=== PATIENT | female | born 1965 | race Caucasian/White ===

== ENCOUNTER 2020-03-14 19:53 | Emergency (ER) | payer MEDICARE ==
[~2020-03-14] VITALS: Ht 152.4 cm; Wt 77.3 kg
[2020-03-14 20:03] VITALS: Ht 152.4 cm; Wt 77.3 kg
[2020-03-14] MEDS ORDERED: EFFEXOR XR150 MG PO (20:06)
[2020-03-14] MEDS ORDERED: ESTRACE 0.5 MG0.5 MG PO (20:06)
[2020-03-14] MEDS ORDERED: ZANAFLEX4 MG PO (20:07)
[2020-03-14] MEDS ORDERED: TRAZODONE HCL150 MG PO (20:07)
[2020-03-14] MEDS ORDERED: BUPROPION HCL150 M1 PO (20:08)
[2020-03-14] MEDS ORDERED: XANAX1 MG PO (20:08)
[2020-03-14] MEDS ORDERED: CYCLOBENZAPRINE10 MG PO (21:29)
[2020-03-14 21:42] VITALS: BP 120/64
== END 2020-03-14 21:42 | disposition home or self-care (01) ==
LOC: D.ER 19:53
DX: G89.29 Other chronic pain (principal); M54.5 Low back pain; M54.10 Radiculopathy, site unspecified

== ENCOUNTER 2020-08-09 14:11 | Emergency (ER) | payer MEDICARE ==
[~2020-08-09] VITALS: Ht 152.4 cm; Wt 84.1 kg
[~2020-08-09 14:11] MED LIST: BUPROPION HCL150 M1 PO; CYCLOBENZAPRINE10 MG PO; EFFEXOR XR150 MG PO; ESTRACE 0.5 MG0.5 MG PO; TRAZODONE HCL150 MG PO; XANAX1 MG PO; ZANAFLEX4 MG PO
[2020-08-09 14:17] VITALS: Ht 152.4 cm; Wt 84.1 kg
[2020-08-09] MEDS ORDERED: ZIPSOR25 MG (14:26)
[2020-08-09] MEDS ORDERED: PHENERGAN25 M1 (14:27)
[2020-08-09] MEDS ORDERED: TRAZODONE HCL150 MG (14:27)
[2020-08-09] MEDS ORDERED: VOLTAREN100 GM (14:28)
[2020-08-09] MEDS ORDERED: PERCOCET 10-321 EAC1 (14:30)
[2020-08-09 14:53] LABS: BASOPHILS 0.4 % (0-2); EOSINOPHILS 4.8 % (0-7); HEMATOCRIT 43.4 % (36.0-48.0); HEMOGLOBIN 14.3 g/dL (12-16); IMMATURE GRANULOCYTES 0.2 % (0-5); LYMPHOCYTES 26.6 % (15-50); MCH 29.7 pg (26.0-34.0); MCHC 32.9 g/dL (31.0-37.0); MCV 90.2 fL (80.0-100.0); MEAN PLATELET VOLUME 9.1 fL (7.4-10.4); MONOCYTES 8.7 % (2-11); NEUTROPHILS 59.3 % (40-80); PLATELET COUNT 354 10x3/uL (130-400); RBC 4.81 10x6/uL (4.00-5.40); RDW 13.3 % (11.5-14.5); WBC 9.1 10x3/uL (4.8-10.8)
[2020-08-09 15:12] LABS: BILIRUBIN NEGATIVE (NEGATIVE); KETONE NEGATIVE (NEGATIVE); NITRITE NEGATIVE (NEGATIVE); UROBILINOGEN NORMAL (NORMAL)
[2020-08-09 15:30] LABS: ANION GAP 10.8 mmol/L (8-16); CALCIUM 8.9 mg/dL (8.5-10.1); CARBON DIOXIDE 29.2 mmol/L (21.0-32.0)
[2020-08-09 15:34] LABS: ALBUMIN 3.7 g/dL (3.4-5.0); BILIRUBIN - TOTAL 0.23 mg/dL (0.2-1.3); PROTEIN - SERUM 7.7 g/dL (6.4-8.2)
[2020-08-09 15:35] LABS: UDS - AMPHET NEGATIVE QUAL (NEGATIVE); UDS - BARB NEGATIVE QUAL (NEGATIVE); UDS - BENZO POSITIVE QUAL (NEGATIVE); UDS - COCAINE NEGATIVE QUAL (NEGATIVE); UDS - OPIATE POSITIVE QUAL (NEGATIVE); UDS - PCP NEGATIVE QUAL (NEGATIVE); UDS - THC NEGATIVE QUAL (NEGATIVE)
--- NOTE | 2020-08-09 15:58 | NUR ---
DR. CAMPBELL NOTIFIED AND SITTER ORDERED SITTER IN LINE OF SIGHT. NOTIFIED CHARGE NURSE AND ATTENDING IN REGARDS TO ASSESSMENT FINDINGS. RESOURCES GIVEN TO PT AND SAFETY PLAN INTIATED.
[2020-08-10 00:42] VITALS: BP 120/77
== END 2020-08-10 00:43 ==
LOC: D.ER 14:11
DX: R45.851 Suicidal ideations (principal); R46.89 Other symptoms and signs involving appearance and behavior; Z76.5 Malingerer [conscious simulation]; F32.9 Major depressive disorder, single episode, unspecified